=== PATIENT | female | born 2000 | race American Indian/Alaskan Native ===

== ENCOUNTER 2021-02-06 16:46 | Outpatient (CLI) | payer MEDICAID ==
[2021-02-06] MEDS ORDERED: LACTATED RINGERS 1,000 ML IV ONE (17:58)
[2021-02-06] MEDS: TERBUTALINE 1 MG/1 ML INJ SUB-Q SCH ×3 (18:15→20:05)
--- NOTE | 2021-02-06 19:34 | Ultrasound Report ---
ULTRASOUND OBSTETRIC LIMITED ULTRASOUND BIOPHYSICAL PROFILE INDICATION / CLINICAL INFORMATION: well being. Clinical Gestational Age (GA) in weeks, days: 39, 6 TECHNIQUE: Transabdominal. COMPARISON: None available. FINDINGS: BREATHING MOVEMENT = 2 GROSS BODY MOVEMENT = 2 TONE = 2 QUALITATIVE AMNIOTIC FLUID VOLUME = 2 TOTAL BIOPHYSICAL SCORE = 8/8 HEART RATE (beats per minute): 130 AMNIOTIC FLUID INDEX (cm) = 10.1 (normal = 7-24 cm) PRESENTATION: Transverse. ADDITIONAL FINDINGS: None. IMPRESSION: 1. Biophysical Score = 8/8 Signer Name: Taryn Ewing MD Signed: 02/06/2021 7:30 PM Workstation Name: [id number]
[2021-02-06 20:31] VITALS: BP 102/59
== END 2021-02-06 20:50 | disposition home or self-care (01) ==
LOC: TRG 16:46 → APU 16:48 → TRG 20:50
PROVIDERS: ATTEND Obstetrics & Gynecology
DX: O42.92 Full-term premature rupture of membranes, unspecified as to length of time between rupture and onset of labor (principal); O46.93 Antepartum hemorrhage, unspecified, third trimester; Z3A.39 39 weeks gestation of pregnancy
CPT/HCPCS: 36415; 59025; 76815; 76819; 84112; 96360; 96372; J3105; J7120

== ENCOUNTER 2021-02-11 09:03 | Inpatient (IN) | payer MEDICAID ==
--- NOTE | 2021-02-11 09:55 | Anesthesia Day of Surgery ---
Anesthesia Day of Surgery - Day of Surgery Patient Examined: Yes Patient H&P Reviewed: Yes Patient is NPO: Yes Beta Blockers: No Cardiac Clearance: No Pulmonary Clearance: No Yousuf's Test: Negative
--- NOTE | 2021-02-11 09:56 | Anesthesia Consultation ---
Anesthesia Consult and Med Hx Date of service: 02/11/21 - Airway Anesthetic Teeth Evaluation: Poor ROM Head & Neck: Adequate Mental/Hyoid Distance: Adequate Mallampati Class: Class II Intubation Access Assessment: Probably Good - Pulmonary Exam CTA: Yes - Cardiac Exam Cardiac Exam: RRR - Pre-Operative Health Status ASA Pre-Surgery Classification: ASA2 Proposed Anesthetic Plan: Spinal - Pulmonary Hx Smoking: No Hx Asthma: No Hx Respiratory Symptoms: No SOB: No COPD: No Home Oxygen Therapy: No Hx Pneumonia: No Hx Sleep Apnea: No - Cardiovascular System Hx Hypertension: No Hx Coronary Artery Disease: No Hx Heart Attack/AMI: No Hx Angina: No Hx Percutaneous Transluminal Coronary Angioplasty (PTCA): No Hx Cardia Arrhythmia: No Hx Pacemaker: No Hx Internal Defibrillator: No Hx Valvular Heart Disease: No Hx Heart Murmur: No Hx Peripheral Vascular Disease: No - Central Nervous System Hx Neuromuscular Disorder: No Hx Seizures: No CVA: No Hx Back Pain: No Hx Psychiatric Problems: No - Gastrointestinal Hx Ulcer: No Hx Gastroesophageal Reflux Disease: Yes - Endocrine Hx Renal Disease: No Hx End Stage Renal Disease: No Hx Cirrhosis: No Hx Liver Disease: No Hx Insulin Dependent Diabetes: No Hx Hypothyroidism: No Hx Hyperthyroidism: No - Hematic Hx Anemia: No Hx Sickle Cell Disease: No - Other Systems Hx Alcohol Use: No Hx Substance Use: No Hx Cancer: No Hx Obesity: No
[2021-02-11] MEDS ORDERED: ONDANSETRON 4 MG/2 ML INJ IV PRN ×2 (10:00→16:24)
[2021-02-11] MEDS ORDERED: HYDROmorphone 1 MG/1 ML INJ IV PRN ×2 (10:00→10:30)
[2021-02-11] MEDS ORDERED: NALOXONE 0.4 MG/1 ML INJ IV PRN ×2 (10:30→16:24)
[2021-02-11] MEDS ORDERED: LACTATED RINGERS 2,000 ML ONE (10:41)
[2021-02-11] MEDS ORDERED: METOCLOPRAMIDE 10 MG/2 ML INJ IV ONE ×2 (11:15→15:00)
[2021-02-11] MEDS ORDERED: FAMOTIDINE 20 MG/2 ML INJ IV ONE ×2 (11:15→15:00)
[2021-02-11] MEDS ORDERED: BICITRA ORAL LIQD 30ML PO ONE ×2 (11:15→15:00)
--- NOTE | 2021-02-11 11:18 | Ultrasound Report ---
ULTRASOUND OBSTETRIC LIMITED INDICATION / CLINICAL INFORMATION: PRESENTATION-C/S @1130. TECHNIQUE: Transabdominal ultrasound imaging. COMPARISON: 02/06/2021 FINDINGS: HEART RATE (beats per minute): 135 AMNIOTIC FLUID INDEX (cm) = not measured PRESENTATION: Breech. ADDITIONAL FINDINGS: None. IMPRESSION: Breech presentation Signer Name: Leonel Chapman Jr, MD Signed: 02/11/2021 11:13 AM Workstation Name: [id number]
[2021-02-11 11:25] LABS: Hemoglobin 14.3 gm/dl (10.1-14.3); Mean Corpuscular HGB Conc 36 % (30-34); Mean Corpuscular Volume 87 fl (79-97); Platelet Count 164 K/mm3 (140-440); Red Blood Count 4.61 M/mm3 (3.65-5.03); Red Cell Distribution Width 13.3 % (13.2-15.2)
--- NOTE | 2021-02-11 11:25 | History and Physical Report ---
History of Present Illness Date of examination: 02/11/21 Date of admission: 02/11/21 09:03 Chief complaint: term , breech presentation. History of present illness: The patient is a 20-year-old -[place] female at term with first breech presentation documented by ultrasound today. She is prepared primary low transverse section today. Prepped for a primary low transverse section. Primary section. She declined a flu shot in 217 of this year. She did have a urinary tract infection with staph aureus that was treated and and tests of cure was negative. She had at least 10 visits at the clinic last menstrual period was 05/03/2020 EDC 02/07/2021 blood type a positive antibody screen was negative hematocrit 37.1% VDRL was nonreactive hepatitis B was negative HIV was negative platelets were 298,000 varicella immune gonorrhea chlamydia tests were negative trichomonas was negative. Cystic fibrosis test and muscular atrophy tests were negative. She had ultrasound done at 15.1 weeks consistent with her dates. Her maternal T 21 was negative ultrasound was repeated on 09/26/2020 and 21.6 weeks her glucose tolerance test showed 66 at 1 hour HIV test was negative she had a repeat ultrasound done on 01/26/2021 at 35.5 weeks her VDRL at this time was nonreactive. Chlamydia test was negative and her gonorrhea test was negative this time group B strep test was negative trichomonas test was also negative. Past medical history is negative past medical history is shows vitamin D insufficiency. Helenaamenia was age 11 x 28 7. This is her first . The patient is prepped for a primary low transverse section today for breech. Past History Past Medical History: no pertinent history Past Surgical History: no surgical history Family/Genetic History: none Social history: single - Obstetrical History Expected Date of Delivery: 02/07/21 Actual Gestation: 40 Week(s) 4 Day(s) : 1 Para: 0 Hx # Term Pregnancies: 0 Number of Pregnancies: 0 Spontaneous Abortions: 0 Induced : 0 Number of Living Children: 0 Medications and Allergies Allergies Allergy/AdvReac Type Severity Reaction Status Date / Time No Known Allergies Allergy Verified 02/06/21 17:11 Active Meds: Active Medications Citric Acid/Sodium Citrate (Bicitra Oral Liqd 30ml) 30 ml PO ONCE ONE Stop: 02/11/21 11:16 Famotidine (Famotidine 20 Mg/2 Ml Inj) 20 mg IV ONCE ONE Stop: 02/11/21 11:16 Hydromorphone HCl (Hydromorphone 1 Mg/1 Ml Inj) 0.5 mg IV Q5M PRN PRN Reason: BREAKTHROUGH PAIN Stop: 02/11/21 17:00 Hydromorphone HCl (Hydromorphone 1 Mg/1 Ml Inj) 0.5 mg IV Q4H PRN PRN Reason: breakthrough pain > 7/10 Oxytocin/Sodium Chloride (Pitocin/Ns 30 Unit/500ml) 30 units in 500 mls @ 0 mls/hr IV TITR NII Cefazolin Sodium 2 gm/ Sodium (Chloride) 100 mls @ 100 mls/30 min IV PREOP NR; Protocol Metoclopramide HCl (Metoclopramide 10 Mg/2 Ml Inj) 10 mg IV ONCE ONE Stop: 02/11/21 11:16 Naloxone HCl (Naloxone 0.4 Mg/1 Ml Inj) 0.2 mg IV Q2MIN PRN PRN Reason: Res Rate </= 8 or 02 SAT < 92% Ondansetron HCl (Ondansetron 4 Mg/2 Ml Inj) 4 mg IV Q8H PRN PRN Reason: Nausea And Vomiting Sodium Chloride (Sodium Chloride 0.9% 10 Ml Flush Syringe) 10 ml IV PRN PRN PRN Reason: flush Review of Systems All systems: negative - Vital Signs Vital signs: Vital Signs Pulse Pulse Ox 101 H 98 02/11/21 09:40 02/11/21 09:40 Temp Pulse Resp BP Pulse Ox 98.4 F 89 16 103/67 100 02/11/21 11:19 02/11/21 11:20 02/11/21 11:19 02/11/21 11:20 02/11/21 11:19 - Physical Exam Breasts: Positive: normal Cardiovascular: Regular rate, Normal S1, Normal S2 Abdomen: Positive: normal appearance, soft, normal bowel sounds. Negative: distention, tenderness Genitourinary (Female): Positive: normal external genitalia, normal perenium Vulva: both: normal Vagina: Positive: normal moisture. Negative: discharge Cervix: Negative: lesion, discharge Uterus: Positive: normal size, enlarged (near term size), normal contour Adnexa: both: normal Anus/Rectum: Positive: normal perianal skin, heme negative. Negative: rectal mass, hemorrhoids Extremities: Positive: normal Deep Tendon Reflex Grade: Normal +2 - Obstetrical FHR: category 1 Uterine Contraction Monitor Mode: Palpation Uterine Contraction Pattern: Absent Uterine Tone Measurement Phase: Resting Results All other labs normal. Assessment and Plan term , breech presentation. plan . - Patient Problems (1) Breech Current Visit: Yes Status: Acute Qualifiers: Fetus number: single or unspecified fetus (2) delivery delivered Current Visit: Yes Status: Acute
[2021-02-11] MEDS ORDERED: OXYTOCIN DRIP 30 UNITS/500 ML BAG IV SCH ×2 (12:00→17:00)
[2021-02-11] MEDS ORDERED: ceFAZolin/Water 2 GM/20 ML 2 GM/20 ML SYRINGE IV SCH (12:00)
[2021-02-11] MEDS ORDERED: TERBUTALINE 1 MG/1 ML INJ ONE (12:44)
[2021-02-11] MEDS ORDERED: ONDANSETRON 4 MG/2 ML INJ ONE ×2 (13:36)
[2021-02-11] MEDS ORDERED: LACTATED RINGERS 1,000 ML IV SCH (13:45)
[2021-02-11] MEDS ORDERED: ceFAZolin/STERILE WATER 2 GM/20 ML SYRINGE IV ONE (15:00)
[2021-02-11] MEDS ORDERED: PHENYLEPHRINE/NS 1,000 MCG/10 ML SYRINGE (OR USE) IV ONE (15:19)
[2021-02-11] MEDS ORDERED: SODIUM CHLORIDE 0.9% IRR 1,500 ML BOTTLE IR ONE (15:30)
[2021-02-11] MEDS ORDERED: WATER FOR IRRIG STERILE 1,500 ML BOTTLE IR ONE (15:30)
[2021-02-11] MEDS ORDERED: BUPIVACAINE/PF (0.25%) 2.5 MG/ML 30 ML VIAL INFILTRATI ONE ×2 (15:53)
[2021-02-11] MEDS ORDERED: dexAMETHasone 20 MG/5 ML VIAL ONE (15:54)
[2021-02-11] MEDS ORDERED: LANOLIN/ZINC/DIMETHICONE (LANSINOH) 7 GM TP PRN (16:24)
[2021-02-11] MEDS ORDERED: MORPHINE 4 MG/1 ML INJ IV PRN (16:24)
[2021-02-11] MEDS ORDERED: ACETAMINOPHEN 325 MG TAB PO PRN (16:24)
[2021-02-11] MEDS ORDERED: WITCH HAZEL/ GLYCERIN PAD TP PRN (16:24)
[2021-02-11] MEDS ORDERED: SIMETHICONE 80 MG CHEW TAB PO PRN (16:24)
--- NOTE | 2021-02-11 16:36 | Procedure Note ---
Date of procedure: 02/11/21 Pre-op diagnosis: 40 wks, transverse lie Post-op diagnosis: same Procedure: This is DrSherry Dictating operative report on the patient. Preoperative diagnosis 40-week intrauterine transverse lie Postoperative diagnosis same Primary low transverse section. Findings liveborn male 6 pounds 3 ounces with Apgars 8 and 9. Estimated blood loss about 1000 cc. Urine output 300 cc intravenous fluids 1200 cc. Complications none. Patient was taken operatory given spinal anesthetic adequate enough for the procedure she was then given a indwelling Zabala catheter and prepped and draped in usual fashion. Timeout was done and we all concurred. We created a Pfannenstiel incision with a scalpel and entered abdominal cavity anatomically. Once we entered the abdominal cavity and the vesicouterine peritoneum was opened transversely with Metzenbaums bladder was bluntly and sharply dissected off the lower uterine segment and the fetus in transverse lie was converted to vertex lie and delivered through the incision. Oropharynx was suction. Nasopharynx suction. Cord was doubly clamped and cut the fetus passed off the table to the nurses in attendance cord blood was obtained. Placenta was then delivered manually. The uterus was cleaned of debris membranes and tissue uterine incision uterus then delivered X abdominally the uterine incision was repaired in 2 layers first layer was in deep manage using running locking 0 chromic the superficial layer of the myometrium was closed with running 2-0 chromic uterine incision was hemostatic tubes and ovaries appeared to be fine this uterine peritoneum was repaired running 2-0 chromic. The gutters were cleaned of the membranes blood and tissue we irrigated the posterior cul-de-sac and this was also suction the uterus brought back abdominal cavity all instruments removed from abdominal care instrument count needle lap and sponge count was correct. Anterior peritoneum was repaired with running 2-0 chromic all instruments were removed from abdominal care instrument count needle lap sponge count was correct prior to closing the anterior dome peritoneum the fascia was closed with running using 0 Vicryl. Subcutaneous panniculus was closed with running 2-0 chromic. The skin was closed with a running subcuticular 7 cutaneous fall Vicryl on a Robbin needle. The skin incision was repaired with Dermabond patient tolerated procedure well she was then returned to recovery room in stable condition. The time of surgery was 34 minutes. Anesthesia: spinal Surgeon: DIONNE ROBLES Estimated blood loss: other (1000ccs.) IV fluids: 1,200 Urine output: 300 Pathology: none Specimen disposition: discarded Condition: stable Disposition: PACU
--- NOTE | 2021-02-11 16:55 | Progress Note ---
Spinal Anesthesia Block - Spinal Anesthesia Block Start Time: 15:12 Stop Time: 15:18 Performed by:: ELIZABETH KERR Procedure: Patient IDed, H&P reviewed, all questions and concerns were answered, and consent was signed. Timeout was performed at bedside. Patient in sitting position. Sterile prep and drape was performed. [3] ml of 1% lidocaine skin wheal at L[3]- L [4]. Needle introducer advanced. 25 gauge spinal needle advanced. Clear, free flowing CSF. negative blood, negative paresthesia. Spinal dose given. All needles removed. Patient tolerated procedure.
--- NOTE | 2021-02-11 16:56 | Progress Note ---
Regional Anesthesia Block - Regional Anesthesia Block Start Time: 16:41 Stop Time: 16:43 Performed By:: ELIZABETH KERR Procedure: Patient consented for TAP block for post surgical pain management. Patient identified, monitors placed, and time out performed. TAP identified bilaterally via ultrasound. Skin prepped bilaterally with [chlorhexidine] and [22g stimuplex] needle advanced to the TAP. [Marcaine 0.25% 35ml] injected under ultrasound guidance on the [left] side. [Marcaine 0.25% 35ml] injected under ultrasound guidance on the [right] side. Negative aspiration every 5mL, No change in heart rate or rhythm. Patient tolerated the procedure well. No apparent complications seen.
[2021-02-11] MEDS: D5W/LACTATED RINGERS 1,000 ML IV SCH (20:06)
[2021-02-12] MEDS: HYDROcodone/ACETAMINOPHEN 5-325 MG TAB PO PRN ×4 (02:39→22:13)
[2021-02-12] MEDS: IBUPROFEN 600 MG TAB PO PRN ×2 (05:47→20:32)
[2021-02-12] MEDS: D5W/LACTATED RINGERS 1,000 ML IV SCH (05:48)
[2021-02-12 06:07] LABS: Hematocrit 32.9 % (30.3-42.9); Hemoglobin 11.6 gm/dl (10.1-14.3)
--- NOTE | 2021-02-12 10:33 | Progress Note ---
Assessment and Plan POD # 1 A: S/P primary LTCS Pain poorly controlled P: Continue routine pp orders Increase Hydrocodone to 2 q6h prn as hermila Encourage ambulation D/C home within 24-48 hrs if stable Subjective - Subjective Date of service: 02/12/21 Principal diagnosis: s/p primary LTCS Patient reports: appetite normal, voiding normally, flatus, pain poorly controlled, ambulating normally [place]: doing well, bottle feeding Objective - Vital Signs Latest vital signs: Vital Signs Temp Pulse Resp BP BP Pulse Ox Pulse Ox 02/12/21 09:26 20 02/12/21 08:15 98.8 F 85 18 103/58 98 02/12/21 05:47 18 02/12/21 04:35 98.3 F 78 18 104/58 98 02/12/21 02:39 20 02/11/21 23:51 98.4 F 83 18 109/61 98 02/11/21 22:29 20 02/11/21 19:40 100 02/11/21 19:39 98.5 F 69 18 113/66 100 02/11/21 18:00 97.9 F 69 20 101/60 100 02/11/21 17:45 80 18 96/40 100 02/11/21 17:30 66 18 97/46 100 02/11/21 17:15 66 18 100/54 100 02/11/21 17:00 64 15 98/58 100 02/11/21 16:55 67 15 100/60 99 02/11/21 16:50 63 16 90/48 99 02/11/21 16:45 59 L 17 102/63 99 02/11/21 16:43 97.7 F 55 L 16 104/55 99 02/11/21 14:05 72 98 02/11/21 14:00 78 99 02/11/21 13:55 97 H 99 02/11/21 13:50 74 120/83 98 02/11/21 13:45 98 H 100 02/11/21 13:40 75 100 02/11/21 13:35 78 100 02/11/21 13:28 80 100 02/11/21 13:23 88 100 02/11/21 13:20 63 112/81 02/11/21 13:18 72 100 02/11/21 13:13 84 99 02/11/21 13:08 78 99 02/11/21 13:03 94 H 100 02/11/21 12:58 84 99 02/11/21 12:53 81 132/72 100 02/11/21 12:52 99 02/11/21 12:48 70 99 02/11/21 12:43 77 100 02/11/21 12:38 88 100 02/11/21 12:33 91 H 99 02/11/21 12:28 75 99 02/11/21 12:23 80 99 02/11/21 12:15 83 98 02/11/21 12:10 79 97 02/11/21 12:05 84 99 02/11/21 12:00 99 H 91 02/11/21 11:55 83 98 02/11/21 11:51 95 H 95/71 02/11/21 11:50 89 99 02/11/21 11:45 82 100 02/11/21 11:40 82 99 02/11/21 11:35 93 H 97 02/11/21 11:30 87 99 02/11/21 11:25 75 100 02/11/21 11:20 87 103/67 99 02/11/21 11:19 98.4 F 54 L 16 103/67 100 02/11/21 11:15 84 99 02/11/21 11:10 87 98 02/11/21 11:05 93 H 98 02/11/21 11:00 81 97 02/11/21 10:55 98 H 99 02/11/21 10:50 101 H 97 02/11/21 10:47 101 H 94 02/11/21 10:45 96 H 98 02/11/21 10:40 98 H 98 02/11/21 10:35 99 H 98 02/11/21 10:30 84 96 Intake and Output 02/11/21 02/12/21 02/12/21 22:59 06:59 14:59 Intake Total 2160 1360 Output Total 600 2100 800 Balance 1560 -740 -800 Intake: IV 1800 1000 D5lr 1,000 ml @ 125 mls/ 1000 hr IV DIRECT NII Rx#: [id number] Oral 360 120 Intake, Free Water 240 Output: Urine 600 2100 800 Indwelling Catheter 1500 Void 600 800 Other: Total, Intake Amount 360 120 Total, Output Amount 600 800 # Voids Void 1 1 Estimated Blood Loss 354 - Exam Abdomen: Present: normal appearance, soft, normal bowel sounds Vulva: both: normal Uterus: Present: normal, firm, fundal height below umbilicus Extremities: Present: normal Incision: Present: normal, dry, intact - Labs Labs: Abnormal lab results 02/11/21 Range/Units 11:00 MCHC 36 H (30-34) %
--- NOTE | 2021-02-12 13:34 | Post Anesthesia Evaluation ---
- Post Anesthesia Evaluation Patient Participated: Yes Airway Patent: Yes Stable Respiratory Function: Yes Nausea/Vomiting: No Temp > 96.8F: Yes Pain Manageable: Yes Adequeate Hydration: Yes Anesthesia Complications: No Block Receding Appropriately: Yes Patient on Ventilator: No
[2021-02-13] MEDS ORDERED: cefTRIAXone/NS 1 GM/50 ML 1 GM/50 ML BAG IV SCH (10:30)
[2021-02-13 10:32] LABS: Bilirubin,Urine NEG (Negative); Blood,Urine LG (Negative); Color,Urine Yellow (Yellow); Mucus,Urine FEW /HPF; Protein,Urine <15 mg/dL mg/dL (Negative)
--- NOTE | 2021-02-13 10:33 | Progress Note ---
Assessment and Plan A: S/P primary LTCS Febrile Endometritis vs uti P: Continue routine pp care Obtain ua c&s Tylenol 650mg prn Advised extra po fluids Start triple abt Will d/c home once afebrile x 24h Dr Wallace was notified Subjective - Subjective Date of service: 02/13/21 Principal diagnosis: s/p primary LTCS Patient reports: appetite normal, voiding normally, dizzy ambulation, pain well controlled, flatus, other (pt denies sob, burning, pain, or urgency upon urination.) : doing well, nursing well Objective - Vital Signs Latest vital signs: Vital Signs Temp Pulse Resp BP BP Pulse Ox Pulse Ox 02/13/21 08:15 101.2 F H 72 20 108/66 02/12/21 23:08 99.4 F 94 H 18 100/42 97 02/12/21 22:13 18 02/12/21 20:32 18 02/12/21 19:30 99 02/12/21 17:36 98.5 F 94 H 18 106/62 100 02/12/21 12:28 98.6 F 95 H 18 102/51 98 Intake and Output 02/12/21 02/13/21 02/13/21 22:59 06:59 14:59 Intake Total 120 480 360 Output Total 300 Balance -180 480 360 Intake: Oral 120 120 360 Intake, Free Water 360 Output: Urine 300 Void 300 Other: Total, Intake Amount 120 120 360 Total, Output Amount 300 # Voids Void 1 2 1 - Exam Breasts: Present: normal Lungs: Present: Clear to auscultation, Normal air movement Abdomen: Present: normal appearance, soft, normal bowel sounds, other (no s&s of infection was noted) Vulva: both: normal Uterus: Present: normal, firm, fundal height below umbilicus Extremities: Present: normal Incision: Present: normal, dry, intact
[2021-02-13] MEDS ORDERED: GENTAMICIN 300 MG in SODIUM CHLORIDE 0.9% 100 ML IV SCH (11:00)
[2021-02-13] MEDS ORDERED: GENTAMICIN/NS 80 MG/100 ML 100 ML IV SCH (11:00)
[2021-02-13] MEDS ORDERED: SODIUM CHLORIDE 0.9% 250ML 250 ML ONE (12:30)
[2021-02-13] MEDS: AMPICILLIN/NS 1 GM/50 ML 1 GM/50 ML BAG IV SCH ×3 (12:41→23:44)
[2021-02-13] MEDS: HYDROcodone/ACETAMINOPHEN 5-325 MG TAB PO PRN ×2 (13:56→20:55)
[2021-02-14] MEDS: HYDROcodone/ACETAMINOPHEN 5-325 MG TAB PO PRN ×2 (03:54→10:16)
[2021-02-14] MEDS: AMPICILLIN/NS 1 GM/50 ML 1 GM/50 ML BAG IV SCH (05:28)
--- NOTE | 2021-02-14 10:52 | Discharge Summary ---
Providers - Providers Date of Admission: 02/11/21 09:03 Date of discharge: 02/14/21 Attending physician: DIONNE ROBLES MD Primary care physician: DIONNE ROBLES MD Hospitalization Reason for admission: active labor, IUP at term Delivery: Procedure: primary low transverse Episiotomy: none Laceration: none Incision: normal, dry, intact Other procedures: other (TRIPLE ABT) complications: UTI Discharge diagnosis: IUP at term delivered [place] baby: male Hospital course: Pt was admitted for primary LTCS r/t breech presentation. She developed a fever pp and was started on triple abt with no further complications. See H&p, delivery summary, and pp notes. Condition at discharge: Stable Disposition: DC-01 TO HOME OR SELFCARE Plan - Discharge Medications Prescriptions: Ibuprofen [Motrin 600 MG tab] 600 mg PO Q6H PRN #30 tablet PRN Reason: Pain, Mild (1-3) - Provider Discharge Summary Activity: routine, no sex for 6 weeks, no heavy lifting 4 weeks, no strenuous exercise Diet: routine Instructions: routine Additional instructions: [] Smoking cessation referral if applicable(refer to patient education folder for contact #) [] Refer to [facility] Booklet Call your doctor immediately for: * Fever > 100.5 * Heavy vaginal bleeding ( >1 pad per hour) * Severe persistent headache * Shortness of breath * Reddened, hot, painful area to leg or breast * Drainage or odor from incision. * Keep incision clean and dry at all times and follow doctor's instructions regarding bathing/showering - Follow up plan Follow up: DIONNE ROBLES MD [Primary Care Provider] - 14 Days
[2021-02-14 13:56] VITALS: BP 109/68
== END 2021-02-14 14:15 | disposition home or self-care (01) | DRG 765 ==
LOC: APU 09:03 → OB 20:03
PROC: 10D00Z1 Extraction of Products of Conception, Low, Open Approach (ICD-10-PCS; principal; 2021-02-11)
PROC: 3E0T3BZ Introduction of Anesthetic Agent into Peripheral Nerves and Plexi, Percutaneous Approach (ICD-10-PCS; 2021-02-11)
DX: O32.1XX0 Maternal care for breech presentation, not applicable or unspecified (principal); O86.20 Urinary tract infection following delivery, unspecified; Z3A.40 40 weeks gestation of pregnancy; Z37.0 Single live birth; O99.62 Diseases of the digestive system complicating childbirth; K21.9 Gastro-esophageal reflux disease without esophagitis; O99.284 Endocrine, nutritional and metabolic diseases complicating childbirth; E55.9 Vitamin D deficiency, unspecified; Z20.822 Contact with and (suspected) exposure to COVID-19
CPT/HCPCS: 36415; 76815; 81001; 82565; 85014; 85018; 85027; 86592; 86850; 86900; 86901; 87086; 99211; G0378; A6250; G0463; J0290; J0690; J0696; J1100; J1170; J1580; J2370; J2405; J2765; J3490; J7050; J7120; J7121; U0003